=== PATIENT | male | born 1990 | race African-American/Black ===

== ENCOUNTER 2017-10-18 20:50 | Emergency (ER) | payer SELFPAY ==
[2017-10-18] MEDS ORDERED: Sodium Chloride 0.9% 10 ML Syringe FLUSH PRN (20:54)
[2017-10-18] MEDS ORDERED: LORazepam 2 MG/ML SDV IVPUSH ONE (20:55)
[2017-10-18] MEDS ORDERED: HYDROmorphone 1 MG/ML Syringe IVPUSH ONE ×2 (20:55→21:09)
[2017-10-18] MEDS ORDERED: fentaNYL 100 MCG/2 ML SDV IVPUSH ONE (21:37)
--- NOTE | 2017-10-18 22:05 | EDM.PDOC ---
ED HPI GENERAL MEDICAL PROBLEM - General Chief Complaint: Upper Extremity Injury/Pain Stated Complaint: left shoulder pain Time Seen by Provider: 10/18/17 20:54 Source of Information: Reports: Patient, Family History Limitations: Reports: No Limitations - History of Present Illness INITIAL COMMENTS - FREE TEXT/NARRATIVE: Patient comes in with pain to his left shoulder after running into 2 other players at the [facility]. They were all playing basketball. He did not hit the ground, did not hit his head or lose consciousness. He has full feeling to his left arm. Onset: Today, Sudden Onset Time: 20:35 Location: Reports: Upper Extremity, Left Quality: Reports: Sharp Severity: Severe Associated Symptoms: Reports: No Other Symptoms Left Shoulder Pain Score (Numeric/FACES): 10 - Related Data Allergies Allergy/AdvReac Type Severity Reaction Status Date / Time No Known Allergies Allergy Verified 10/18/17 21:22 Home Meds: Home Meds . [No Known Home Meds] 10/18/17 [History] Past Medical History - Past Health History Medical/Surgical History: Denies Medical/Surgical History Social & Family History - Tobacco Use Smoking Status *Q: Unknown Ever Smoked Review of Systems - Review of Systems Review Of Systems: See Below Constitutional: Reports: No Symptoms Eyes: Reports: No Symptoms Ears: Reports: No Symptoms Nose: Reports: No Symptoms Mouth/Throat: Reports: No Symptoms Respiratory: Reports: No Symptoms Cardiovascular: Reports: No Symptoms GI/Abdominal: Reports: No Symptoms Genitourinary: Reports: No Symptoms Musculoskeletal: Reports: Shoulder Pain (left) Skin: Reports: No Symptoms Neurological: Reports: No Symptoms Psychiatric: Reports: No Symptoms ED EXAM, GENERAL - Physical Exam Exam: See Below Exam Limited By: No Limitations General Appearance: Alert, WD/WN, No Apparent Distress Eye Exam: Bilateral Eye: EOMI, Normal Inspection, PERRL Head: Atraumatic, Normocephalic Neck: Normal Inspection, Supple, Non-Tender, Full Range of Motion Respiratory/Chest: No Respiratory Distress, Lungs Clear, Normal Breath Sounds, No Accessory Muscle Use, Chest Non-Tender Cardiovascular: Normal Peripheral Pulses, Regular Rate, Rhythm, No Edema, No Gallop, No JVD, No Murmur, No Rub Peripheral Pulses: 2+: Posterior Tibial (L), Posterior Tibial (R), Dorsalis Pedis (L), Dorsalis Pedis (R) GI/Abdominal: Normal Bowel Sounds, Soft, Non-Tender, No Organomegaly, No Distention, No Abnormal Bruit, No Mass Extremities: Joint Swelling, Arm Pain, Limited Range of Motion, Other (left shoulder is visibly dislocated anteriorly, limited ROM due to pain) Neurological: Alert, Oriented, CN II-XII Intact, Normal Cognition, Normal Gait, Normal Reflexes, No Motor/Sensory Deficits Psychiatric: Normal Affect, Normal Mood Skin Exam: Warm, Dry, Intact, Normal Color, No Rash Lymphatic: No Adenopathy ED TRAUMA EXTREMITY PROCEDURES - Joint Reduction Site: Shoulder (L) Sedation: Other (50 mcg Fentanyl, 1 mg dilaudid) Pre-Procedure NV Status: Normal Post-Procedure NV Status: Normal Technique: Other Number of Attempts: 1 Post-Reduction Imaging: Completely Reduced, No Fracture Seen Joint Reduction Complications: No Course - Vital Signs Last Recorded V/S: Last Vital Signs Temp 36.9 C 10/18/17 20:50 Pulse 110 H 10/18/17 20:50 Resp 24 H 10/18/17 20:50 BP 140/90 10/18/17 20:50 Pulse Ox 97 10/18/17 20:50 - Orders/Labs/Meds Orders: Active Orders 24 hr Category Date Time Status Chest 1V Frontal [CR] Stat Exams 10/18/17 20:54 Ordered Shoulder Comp Lt [CR] Stat Exams 10/18/17 20:54 Ordered Sodium Chloride 0.9% [Saline Flush] Med 10/18/17 20:54 Ordered 10 ml FLUSH ASDIRECTED PRN Saline Lock Insert [OM.PC] Routine Oth 10/18/17 20:54 Ordered Medication Orders Sodium Chloride (Saline Flush) 10 ml FLUSH ASDIRECTED PRN PRN Reason: Keep Vein Open Meds: Medications Generic Name Dose Route Start Last Admin Trade Name Freq PRN Reason Stop Dose Admin Sodium Chloride 10 ml 10/18/17 20:54 Saline Flush FLUSH ASDIRECTED PRN Keep Vein Open Discontinued Medications Generic Name Dose Route Start Last Admin Trade Name Freq PRN Reason Stop Dose Admin Fentanyl 50 mcg 10/18/17 21:37 10/18/17 21:42 Sublimaze IVPUSH 10/18/17 21:38 50 mcg ONETIME ONE Administration Hydromorphone HCl 1 mg 10/18/17 20:55 10/18/17 21:03 Dilaudid IVPUSH 10/18/17 20:56 1 mg ONETIME ONE Administration Hydromorphone HCl 1 mg 10/18/17 21:09 10/18/17 21:14 Dilaudid IVPUSH 10/18/17 21:10 1 mg ONETIME ONE Administration Lorazepam 1 mg 10/18/17 20:55 10/18/17 21:04 Ativan IVPUSH 10/18/17 20:56 1 mg ONETIME ONE Administration Departure - Departure Time of Disposition: 22:53 Disposition: Home, Self-Care 01 Condition: Good Clinical Impression: Dislocation of shoulder, left, closed - Discharge Information Instructions: Shoulder Dislocation, [id number] Additional Instructions: Follow up with your primary doctor in 7-10 days or sooner if your symptoms warrant. You may need an MRI if your shoulder does not improve in that time. Alternate tylenol and ibuprofen for pain and swelling. I gave you a packet of hydrocodone. Take these every 4 hours for pain. I also gave you a pack of flexeril which is a muscle relaxant. Take 1 tablet every 8 hours by mouth. Keep your arm immobilized in the sling. Call if you have any further questions or concerns. - Problem List & Annotations (1) Dislocation of shoulder, left, closed SNOMED Code(s): 25957555 Code(s): S43.005A - UNSPECIFIED DISLOCATION OF LEFT SHOULDER JOINT, INIT ENCNTR Status: Acute Priority: Low Qualifiers: Encounter type: initial encounter Qualified Code(s): S43.005A - Unspecified dislocation of left shoulder joint, initial encounter - Problem List Review Problem List Initiated/Reviewed/Updated: Yes - My Orders Last 24 Hours: My Active Orders 10/18/17 20:54 Chest 1V Frontal [CR] Stat Shoulder Comp Lt [CR] Stat Sodium Chloride 0.9% [Saline Flush] 10 ml FLUSH ASDIRECTED PRN Saline Lock Insert [OM.PC] Routine - Assessment/Plan Last 24 Hours: My Active Orders 10/18/17 20:54 Chest 1V Frontal [CR] Stat Shoulder Comp Lt [CR] Stat Sodium Chloride 0.9% [Saline Flush] 10 ml FLUSH ASDIRECTED PRN Saline Lock Insert [OM.PC] Routine Assessment:: left shoulder dislocation Plan: Follow up with your primary doctor in 7-10 days or sooner if your symptoms warrant. You may need an MRI if your shoulder does not improve in that time. Alternate tylenol and ibuprofen for pain and swelling. I gave you a packet of hydrocodone. Take these every 4 hours for pain. I also gave you a pack of flexeril which is a muscle relaxant. Take 1 tablet every 8 hours by mouth. Keep your arm immobilized in the sling. Call if you have any further questions or concerns.
[2017-10-18] MEDS ORDERED: Lactated Ringers 1,000 ML IV ONE (22:17)
[2017-10-18] MEDS ORDERED: Take Home: Cyclobenzaprine 10 MG Tab, 4 Tab Pack PO ONE (22:54)
[2017-10-18] MEDS ORDERED: Take Home: Acetaminophen/HYDROcodone 325-10 MG, 5 Tab Pack PO ONE (22:54)
== END 2017-10-18 23:03 | disposition home or self-care (01) ==
LOC: VM.ED 20:50
DX: S43.015A Anterior dislocation of left humerus, initial encounter (principal); X58.XXXA Exposure to other specified factors, initial encounter; Y93.67 Activity, basketball
CPT/HCPCS: 23650; 71045; 73030; 96361; 96374; 96375; 99283; A9270; J1170; J2060; J3010; J7120